=== PATIENT | female | born 1940 | race Caucasian/White ===

== ENCOUNTER → 2017-12-29 | Outpatient (CLI) | payer MEDICARE, BC, OTHER ==
[~2017-12-29] MED LIST: CHILDREN'S ASPI81 M1 PO; FOLIC ACID1 MG PO; IBUPROFEN 800800 M1 PO; IRON325 PO; KLONOPIN1 MG PO; LISINOPRIL-HCT1 EACH PO; MAGOX 400400 MG PO; METHYLPHENIDATE20 M4 PO; POTASSIUM PO; PROTONIX40 M1 PO; TRAMADOL 50 MG50 MG PO; VITAMIN B12 PO; VITAMIN D1000 UNI1 PO; ZANAFLEX4 MG PO; calcium PO
== END ==
LOC: M.MRI 11:21
DX: M47.894 Other spondylosis, thoracic region (principal); M41.84 Other forms of scoliosis, thoracic region

== ENCOUNTER → 2018-01-13 | Outpatient (CLI) | payer MEDICARE, BC, OTHER ==
--- NOTE | 2018-01-18 07:00 | PAINCON ---
[address] [address] PAIN MANAGEMENT CONSULTATION Name: ARMANDO MAIER [id number] Admission: 01/13/18 Attend Phys: Sophie Coombs Discharge: Date of : 36 Report #: [id number] THIS REPORT FOR: //name// CC: Titus Varela DO Too Best DATE OF SERVICE: 01/13/2018 The patient is a very anxious 77-year-old female seen in consultation at the request of Dr. Varela for assistance with management of ongoing axial back pain. The patient notes pain has been present for a "long" time, though it has been getting worse in the past 3 years. She notes pain in the left mid back scapular area and across the low back beltline area. She notes pain is gnawing, throbbing, sharp, aching; rates anywhere from 4-8 on VAS. She notes the pain is exacerbated with "doing things like ordinary cleaning or shopping." She has tried some ibuprofen with nominal efficacy for pain relief. She denies any specific myelopathic or radicular symptoms. REVIEW OF SYSTEMS: Complete review of systems was attached to the chart and gone with the patient. She has been now for nearly 30 years. Does not smoke or drink alcohol to excess. History of hypertension, treated with lisinopril. History of narcolepsy, treated with methylphenidate 40 mg in the morning, 20 at night; does take clonazepam 1 mg at bedtime. PAST SURGICAL HISTORY: Reviewed and includes hysterectomy in 1976. Prior colonoscopies and I believe an esophageal dilatation in July. The patient is a homemaker. She enjoys outdoor gardening. Pain impact score averages about 35/70. PHYSICAL EXAMINATION: VITAL SIGNS: Reveals a 5-foot 2-inch, 150-pound, very anxious female, BMI is 27.9 kilograms per meter squared. Blood pressure is elevated today 157/101, pulse 85, respirations 16. NEUROLOGIC: Cranial nerves 2-12 are grossly intact. HEENT: Pupils equal, react to light and accommodation. Extraocular muscles are intact. NECK: Cervical range of motion is full. Thyroid is unremarkable. MUSCULOSKELETAL: Upper extremity strength is generally preserved. HEART: Regular and rhythmical with a grade 2/6 systolic ejection murmur. LUNGS: Clear. ABDOMEN: Benign. EXTREMITIES: Lower extremity strength is symmetric. Gait is tandem. Deep tendon reflexes are preserved in the upper and lower extremities. Does have diffuse tenderness. She does have marked thoracolumbar scoliosis[place] [address] PAIN MANAGEMENT CONSULTATION Name: ARMANDO MAIER [facility] [id number] Admission: 01/13/18 Attend Phys: Sophie Coombs Discharge: Date of : 36 Report #: [id number] diffuse tenderness on the left side about T3 through T8 at the apex of the thoracic dextroscoliosis. Diffuse tenderness across the low back about the L3-L5 area. Rotation and sidebending exacerbates pain, though she notes her pain is relatively nominal at present. DIAGNOSTIC STUDIES: Include MRI of the thoracic spine 12/29/2017. I pulled these images up on the computer and viewed them with the patient at her request. We spent a prolonged time reviewing her specific issues. She does have a thoracic spondylosis and scoliosis, degenerative changes noted in the lower thoracic spine, mild central spinal narrowing T11-T12 and T12-L1. Lumbar spine was visible in the images. She does have some lumbar facet arthrosis and a little narrowing in the L4-L5 area, though this does not correlate with any specific radicular neurologic symptoms. ASSESSMENT: Thoracolumbar scoliosis and spondylosis in a fairly anxious 77-year-old female. RECOMMENDATIONS: Long discussion with the patient today about therapeutic options. We talked about trigger point injections into the left mid thoracic paravertebral muscles and lumbar facet joint injections, L4-L5 and L5-S1 bilaterally for the lower back. We can proceed with these any time if pain becomes problematic. For the current time being, we will trial continuing ibuprofen p.r.n. and tizanidine 4 mg one-half to one tablet 3 times a day. We have tentatively made an appointment to see the patient back in 3 weeks for reevaluation. Consideration for interventional therapy if indicated at that time. She is doing moderately well with current medication. We will simply see the patient on as needed basis. Thank you for allowing me to participate in the patient's care. I will keep you abreast of her progress. <ELECTRONICALLY SIGNED> By: Too Best DO 01/18/18 0700 [id number] [id number] Best DO /nt
== END ==
LOC: M.PC 01:33
DX: M47.895 Other spondylosis, thoracolumbar region (principal); M41.85 Other forms of scoliosis, thoracolumbar region

== ENCOUNTER → 2018-02-10 | Outpatient (CLI) | payer MEDICARE, BC, OTHER ==
--- NOTE | 2018-02-13 09:57 | PAINCON ---
[address] [address] PAIN MANAGEMENT CONSULTATION Name: ARMANDO MAIER [facility] [id number] Admission: 02/10/18 Attend Phys: Sophie Coombs Discharge: Date of : 36 Report #: [id number] THIS REPORT FOR: //name// CC: Titus Best The patient is a 77-year-old female, seen in consultation on 01/13/2018, diagnosed with thoracolumbar scoliosis and spondylosis with myofascial pain component. The patient was continued on ibuprofen over the counter and tizanidine was started 4 mg as needed for spasm. She returns to pain clinic today. She states medication is helpful, she can work up to 30 minutes, but then has to rest. She thinks primary pain in the left upper back and across the beltline low back area remains problematic. PHYSICAL EXAMINATION: Shows pleasant 77-year-old female, alert and oriented to person, place, and time, judged to be a reasonable historian. BMI is 28.6 kg/m2. Blood pressure 150/90, pulse 80, and respirations are 16. Rises from chair easily. Gait is tandem. She does have palpable spasm in the upper left thoracic paravertebral muscles and tenderness in the low back about L4 bilateral down and appears to be both spondylitic and myofascial pain. Lower extremity strength is preserved. Straight leg raise negative. ASSESSMENT: 1. M47.816 2. M47.817 3. Myofascial pain Discussion with the patient today about therapeutic option. We would like to continue tizanidine 4 mg t.i.d. as needed for spasm. Follow up in 30 days for reevaluation. As she continues to increase activity with gardening season and increase in physical activity, we will consider trigger point injection plus minus lumbar facet joint injections (bilateral L4-L5 and L5-S1) as needed at next visit. <ELECTRONICALLY SIGNED> By: Too Best DO 02/13/18 0957 [id number] Best DO /nt
== END ==
LOC: M.PC 02-03 10:20
DX: M47.895 Other spondylosis, thoracolumbar region (principal); M41.85 Other forms of scoliosis, thoracolumbar region

== ENCOUNTER → 2018-03-10 | Outpatient (CLI) | payer MEDICARE, BC, OTHER ==
--- NOTE | 2018-03-11 07:19 | PAINCON ---
[address] [address] PAIN MANAGEMENT CONSULTATION Name: ARMANDO MAIER [facility] [id number] Admission: 03/10/18 Attend Phys: Sophie Coombs Discharge: Date of : 36 Report #: [id number] THIS REPORT FOR: //name// CC: Titus Best DATE OF SERVICE: 03/10/2018 HISTORY OF PRESENT ILLNESS: The patient is an 78-year-old female, initially seen in consultation on 01/13/2018, diagnosed with lumbar and lumbosacral spondylosis without myelopathy, component of thoracolumbar scoliosis and myofascial pain. Last seen in the pain clinic on 02/10/2018. We had started the patient on tizanidine as needed for spasm 4 mg t.i.d. Continued ibuprofen [id number]. She returns to the pain clinic noting while these agents have been helpful, she notes pain continues in the mid back down, meds help and pain does not last as long, but pain is affecting all activity and she is becoming quite frustrated. Rates pain anywhere from a 3-10 on a visual analog scale. PHYSICAL EXAMINATION: GENERAL: Shows an 78-year-old female, BMI is 28 kilograms per meter squared. VITAL SIGNS: Blood pressure 145/83, pulse 82, respirations 16. MUSCULOSKELETAL: Rises from chair using armrest. Lower extremity strength is preserved. Lumbar flexion is modestly limited, very tender over the lumbar facets, exacerbated with rotation and sidebending. Pain is about from top of the iliac crest and a little bit above corresponding to the L3-L4 and L4-L5 facets. ASSESSMENT: Symptomatic lumbar spondylosis without myelopathy. RECOMMENDATION: We will proceed with bilateral L3-L4 and L4-L5 facet joint injection under fluoroscopy. Follow up simply as needed. I talked about range of motion, stretching and core strengthening exercises. We may consider Cymbalta for myofascial pain if indicated and thoracic paravertebral muscle trigger point injections if needed, though again this latter component (myofascial pain) is relatively nominal at present. PROCEDURE: Bilateral L3-L4 and L4-L5 facet joint injection under fluoroscopy. INDICATIONS: Symptomatic lumbar spondylosis without myelopathy (M47.816). PROCEDURE NOTE: After written and informed consent was obtained, the patient was taken to the fluoroscopy suite and placed in prone position. After sterile prep and drape, skin wheal was raised. A 22-gauge stylet needle was placed to contact the inferior aspect of the right L3-L4 and L4-L5 facet joint. AP and lateral projections showed good needle placement. A 20 mg [place] [address] PAIN MANAGEMENT CONSULTATION Name: ARMANDO MAIER [facility] [id number] Admission: 03/10/18 Attend Phys: Sophie Coombs Discharge: Date of : 36 Report #: [id number] 1 mL of 0.5% preservative-free bupivacaine injected at each site. [place] were removed. C-arm was turned obliquely to the contralateral, i.e. left side. Procedure was repeated. After all 4 needles removed, the patient was allowed to ambulate to recovery room, monitored for an appropriate period of time. Please note the patient's pain was absent on discharge, being 0. Fluoroscopy time was under 20 seconds. Followup is as needed. <ELECTRONICALLY SIGNED> By: Too Best DO 03/11/18 0719 1425 2020Vinkate Best DO /nt
== END | disposition home or self-care (01) ==
LOC: M.PC 03:37
DX: M47.816 Spondylosis without myelopathy or radiculopathy, lumbar region (principal); M47.817 Spondylosis without myelopathy or radiculopathy, lumbosacral region; M41.85 Other forms of scoliosis, thoracolumbar region; M79.1 Myalgia; Z88.2 Allergy status to sulfonamides; Z79.82 Long term (current) use of aspirin; Z79.899 Other long term (current) drug therapy

== ENCOUNTER → 2018-03-24 | Outpatient (CLI) | payer MEDICARE, BC, OTHER ==
--- NOTE | 2018-03-25 07:13 | PAINCON ---
[address] [address] PAIN MANAGEMENT CONSULTATION Name: LIVIERARMANDO [facility] [id number] Admission: 03/24/18 Attend Phys: Sophie Coombs Discharge: Date of : 36 Report #: [id number] THIS REPORT FOR: //name// CC: Titus Best HISTORY OF PRESENT ILLNESS: The patient is a very pleasant 78-year-old female, prior seen in the Pain Clinic for symptomatic lumbar spondylosis without myelopathy (M47.816). Component of myofascial pain and thoracolumbar scoliosis. I proceeded to perform bilateral L3-L4, L4-L5 facet joint injections at last visit. I provided the patient with a prescription for tizanidine for muscle spasm pain. He returns to pain clinic today noting greater than 50% improvement of baseline pain, still has pain in the low back, exacerbated with rotation and forward bending. PHYSICAL EXAMINATION: Shows improved functional status but still tenderness over the mid lumbar paravertebral muscles and facets. Rates the pain a 3-4 on a VAS. Taking tizanidine p.r.n. and ibuprofen occasionally. ASSESSMENT: Symptomatic lumbar spondylosis without myelopathy. RECOMMENDATIONS: After long discussion with the patient, it was elected to repeat L3-L4 and L4-L5 bilateral facet joint injection under fluoroscopy today. We will use lower dose triamcinolone (40 mg total) in consideration of osteopenia. Follow up simply on as needed basis. I did inform the patient that I am leaving the practice. She can certainly follow up with Dr. Scott Mendze as needed for any further interventional procedures if indicated. ASSESSMENT: Symptomatic lumbar spondylosis without myelopathy, M47.816. PROCEDURE NOTE: Bilateral L3-L4 and L4-L5 facet joint injection under fluoroscopy. DESCRIPTION OF PROCEDURE NOTE: After written informed consent was obtained, the patient was taken to the fluoroscopy suite and placed in prone position. After sterile prep and drape, skin wheal was raised. A 22-gauge stylet needle was placed to contact the inferior aspect of the right L3-L4 and right L4-L5 facet joints. AP and lateral projections showed good placement. A 10 mg of triamcinolone plus 1 mL of 0.5% preservative-free bupivacaine was injected at each site. Needle was removed and C-arm was turned obliquely to the contralateral, i.e., left side. Procedure was repeated. After all 4 needles removed, the patient was allowed to ambulate to recovery, [place] [address] PAIN MANAGEMENT CONSULTATION Name: ARMANDO MAIER Room: [facility]#: [id number] Admission: 03/24/18 Attend Phys: Sophie Coombs Discharge: Date of : 36 Report #: [id number] appropriate period of time, discharged in good and stable condition, noting incremental improvement in baseline pain. Fluoroscopy time was under 20 seconds. <ELECTRONICALLY SIGNED> By: Too Best DO 03/25/18 0713 1405 [id number] Best DO /nt
== END | disposition home or self-care (01) ==
LOC: M.PC 04:08
DX: M47.816 Spondylosis without myelopathy or radiculopathy, lumbar region (principal); M41.85 Other forms of scoliosis, thoracolumbar region; Z88.2 Allergy status to sulfonamides; Z79.82 Long term (current) use of aspirin; Z79.899 Other long term (current) drug therapy; Z98.890 Other specified postprocedural states

== ENCOUNTER → 2019-01-28 | Outpatient (CLI) | payer MEDICARE, BC, OTHER ==
[2019-01-28 10:41] LABS: CREATININE 1.2 mg/dL (0.6-1.3)
== END ==
LOC: M.CT 09:30 → M.LAB 10:00 → M.CT 11:30
DX: J32.4 Chronic pansinusitis (principal); I10 Essential (primary) hypertension; J34.2 Deviated nasal septum; Z88.2 Allergy status to sulfonamides

== ENCOUNTER → 2019-02-16 | Outpatient (CLI) | payer MEDICARE, BC, OTHER | LOC: M.MRI 13:10 | DX: I63.9 Cerebral infarction, unspecified (principal); I67.1 Cerebral aneurysm, nonruptured; Z88.0 Allergy status to penicillin ==

== ENCOUNTER → 2019-02-23 | Outpatient (CLI) | payer MEDICARE, BC, OTHER | LOC: M.CT 12:21 | DX: I67.1 Cerebral aneurysm, nonruptured (principal); I65.23 Occlusion and stenosis of bilateral carotid arteries; Z88.2 Allergy status to sulfonamides ==